=== PATIENT | female | born 1990 | race African-American/Black ===

== ENCOUNTER 2020-01-16 15:42 | Emergency (ER) | payer BC ==
[~2020-01-16] VITALS: Ht 160 cm; Wt 63.5 kg
[2020-01-16 17:17] VITALS: BP 128/62
== END 2020-01-16 17:18 | disposition home or self-care (01) ==
LOC: ER 15:42
DX: S61.412A Laceration without foreign body of left hand, initial encounter (principal); F90.9 Attention-deficit hyperactivity disorder, unspecified type; Z88.0 Allergy status to penicillin; W26.8XXA Contact with other sharp object(s), not elsewhere classified, initial encounter; Y93.89 Activity, other specified; Y92.89 Other specified places as the place of occurrence of the external cause; Y99.8 Other external cause status

== ENCOUNTER 2020-01-29 15:54 | Emergency (ER) | payer BC ==
[~2020-01-29] VITALS: Ht 160 cm; Wt 60.8 kg
[2020-01-29 16:19] VITALS: BP 121/72
== END 2020-01-29 16:43 | disposition home or self-care (01) ==
LOC: ER 15:54
DX: S61.412D Laceration without foreign body of left hand, subsequent encounter (principal); Z88.0 Allergy status to penicillin; X58.XXXD Exposure to other specified factors, subsequent encounter